=== PATIENT | female | born 1945 | race Caucasian/White ===

== ENCOUNTER 2024-06-28 00:23 | Outpatient (CLI) | payer MEDICARE, BC, SELFPAY ==
--- NOTE | 2024-06-28 13:06 | DI.RAD_ITS ---
Exam(s) XR FOOT LT COMPLETE EXAM: XR FOOT LT COMPLETE CLINICAL HISTORY: Left foot pain,M79.672. TECHNIQUE: 2D digital imaging was performed of the left foot. Three images were obtained. AP, obli que and lateral views were obtained. COMPARISON: No exams were available for comparison FINDINGS: BONES: No acute fracture is present. No bony destructive lesion is seen. There is a small enthesophyt e at the posterior calcaneus. There is a small plantar calcaneal spur. JOINTS: No dislocation present. There is a mild hallux valgus deformity. Mild degenerative changes a re seen in the foot characterized by joint space narrowing and osteophytes. The findings are most ma rked at the tarsometatarsal joints. SOFT TISSUE: Normal. IMPRESSION: Degenerative changes of the foot and mild hallux valgus deformity. DATA REPOSITORY: RADIATION DOSE DELIVERED:
--- NOTE | 2024-06-28 13:07 | DI.RAD_ITS ---
Exam(s) XR FOOT RT COMPLETE EXAM: XR FOOT RT COMPLETE CLINICAL HISTORY: Right foot pain,M79.671. TECHNIQUE: 2D digital imaging was performed of the right foot. Three images were obtained. AP, obl ique and lateral views were obtained. COMPARISON: There are no priors for comparison. FINDINGS: BONES: No acute fracture is present. No bony destructive lesion is seen. There is a enthesophyte at t he posterior calcaneus. There is a small plantar calcaneal spur. JOINTS: No dislocation present. There is a mild hallux valgus deformity. Mild degenerative changes a re seen in the foot. SOFT TISSUE: Normal. IMPRESSION: Mild degenerative changes of the foot, mild hallux valgus deformity and calcaneal spurs. DATA REPOSITORY: RADIATION DOSE DELIVERED:
== END 2024-06-28 00:43 ==
PROVIDERS: PCP Family Medicine; Visit Provider Podiatrist
DX: M79.672 Pain in left foot (principal); M79.671 Pain in right foot; M25.572 Pain in left ankle and joints of left foot; M19.072 Primary osteoarthritis, left ankle and foot
CPT/HCPCS: 20600; 99204; 73630

== ENCOUNTER → 2024-08-04 14:57 | Outpatient (BNVA) | payer MEDICARE, BC, SELFPAY | PROVIDERS: PCP Family Medicine; Referring Provider Family Medicine; Visit Provider Podiatrist | DX: M19.072 Primary osteoarthritis, left ankle and foot; M25.572 Pain in left ankle and joints of left foot | CPT/HCPCS: 20600; 20605; J0702; J1100 ==